=== PATIENT | male | born 1995 | race Hispanic/Latino ===

== ENCOUNTER → 2016-05-17 | Outpatient (CLI) | payer OTHER ==
--- NOTE | 2016-05-17 16:19 | REP ---
CT Head without contrast HISTORY: Forehead mass COMPARISON: None There is no intraparenchymal hemorrhage, acute infarct, mass or midline shift. The ventricular system is normal in appearance. There is no extra cerebral collection. There is no fracture. Minimal mucosal thickening is present in the left maxillary sinus. 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 There is thickening of the overlying subcutaneous tissue. There is minimal soft tissue thickening overlying the left parietal bone at the vertex. IMPRESSION: 1. There is no intracranial lesion. 2. 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 Signed by Guillermo Patricio MD 05/17/2016 04:11 P
== END ==
LOC: M RAD 15:53
PROVIDERS: ATTEND Surgery
DX: D16.9 Benign neoplasm of bone and articular cartilage, unspecified (principal)

== ENCOUNTER 2016-06-21 07:58 | Emergency (ER) | payer OTHER ==
[~2016-06-21] VITALS: Ht 180.3 cm; Wt 10.4 kg
[2016-06-21] MEDS ORDERED: KETOROLAC 30 MG/ML VIAL (J1885) IV ONE (09:30)
[2016-06-21] MEDS ORDERED: ONDANSETRON 4MG/2ML VIAL (J2405) IV ONE (09:30)
[2016-06-21] MEDS ORDERED: NS 1,000 ML IV ONE (09:30)
[2016-06-21 10:14] LABS: BASO % 0.3 % (0.0-1.0); EOS # 0.1 K/mm3 (0.0-0.50); EOS % 0.6 % (0.0-3.0); LARGE UNSTAINED CELL # 0.1 K/mm3 (0.0-0.4); LARGE UNSTAINED CELL % 1.5 % (0.0-4.0); LYMPH # 1.2 K/mm3 (1.5-6.5); LYMPH % 13.1 % (24.0-44.0); MEAN CORPUSCULAR HEMOGLOBIN 30.9 pg (27.0-33.0); MEAN CORPUSCULAR HGB CONC 34.4 g/dl (32.0-36.5); MEAN CORPUSCULAR VOLUME 89.7 fl (80.0-96.0); MONO # 0.8 K/mm3 (0.0-0.8); MONO % 8.3 % (0.0-5.0); NEUTROPHILS # 7.1 K/mm3 (1.8-7.7); NEUTROPHILS % 76.2 % (36.0-66.0); PLATELET COUNT, AUTOMATED 211 k/mm3 (150-450); RED CELL DISTRIBUTION WIDTH 12.2 % (11.5-14.5); WHITE BLOOD COUNT 9.4 K/mm3 (4.0-10.0)
[2016-06-21 10:24] LABS: ALBUMIN 4.3 GM/DL (3.2-5.2); ALBUMIN/GLOBULIN RATIO 1.13 (1.00-1.93); ALKALINE PHOSPHATASE 102 U/L (45-117); ALT/SGPT 32 U/L (12-78); ANION GAP 10 MEQ/L (8-16); AST/SGOT 24 U/L (15-37); BILIRUBIN,DIRECT 0.2 MG/DL (0.0-0.2); BILIRUBIN,TOTAL 0.8 MG/DL (0.2-1.0); BLOOD UREA NITROGEN 14 MG/DL (7-18); CARBON DIOXIDE LEVEL 27 MEQ/L (21-32); CHLORIDE LEVEL 99 MEQ/L (98-107); CREATININE FOR GFR 1.13 MG/DL (0.70-1.30); GLOMERULAR FILTRATION RATE > 60.0 (>60); GLUCOSE, FASTING 100 MG/DL (70-105); POTASSIUM SERUM 4.3 MEQ/L (3.5-5.1); SODIUM LEVEL 136 MEQ/L (136-145); TOTAL PROTEIN 8.1 GM/DL (6.4-8.2)
[2016-06-21] MEDS ORDERED: GI COCKTAIL 50ML BTL(HYOSCYAMINE/MAALOX/LIDOCAINE VISCOUS)(1:3:1) PO ONE (11:00)
[2016-06-21] MEDS ORDERED: ZOFR4TAB3 PO (11:01)
[2016-06-21 11:50] VITALS: BP 160/89
== END 2016-06-21 12:00 | disposition home or self-care (01) ==
LOC: M ED 09:12
DX: K29.00 Acute gastritis without bleeding (principal); E86.0 Dehydration
CPT/HCPCS: 80048; 80076; 81001; 83605; 83690; 85025; 96361; 96374; 96375; 99282; J1885; J2405

== ENCOUNTER → 2016-08-14 | Outpatient (CLI) | payer OTHER ==
[~2016-08-14] MED LIST: ZOFR4TAB3 PO
--- NOTE | 2016-08-15 10:23 | REP ---
MR BRAIN WITHOUT CONTRAST: HISTORY: Headache. COMPARISON: CT 05/17/2016. There are no areas of abnormal signal intensity in the brain. There is no intraparenchymal hemorrhage, infarct, mass or midline shift. The ventricular system is normal in appearance. There is no extracerebral collection. Minimal mucosal thickening is present in the left ethmoid sinus. A small focal area of soft tissue thickening is present overlying the right frontal bone. IMPRESSION: There is no intracranial lesion. Signed by Guillermo Patricio MD 08/15/2016 10:25 A
== END ==
LOC: M RAD 17:43
PROVIDERS: ATTEND Neurological Surgery
DX: R51 Headache (principal)

== ENCOUNTER → 2016-09-08 | Outpatient (CLI) | payer OTHER ==
[~2016-09-08] MED LIST changes: +CIPR-250 PO; +NORC1TAB4 PO; +TYLE500T78 PO
[2016-09-08 10:33] LABS: BASO % 0.6 % (0.0-1.0); EOS # 0.2 K/mm3 (0.0-0.50); EOS % 3.4 % (0.0-3.0); LARGE UNSTAINED CELL # 0.1 K/mm3 (0.0-0.4); LARGE UNSTAINED CELL % 1.8 % (0.0-4.0); LYMPH # 2.5 K/mm3 (1.5-6.5); LYMPH % 36.3 % (24.0-44.0); MEAN CORPUSCULAR HEMOGLOBIN 30.4 pg (27.0-33.0); MEAN CORPUSCULAR HGB CONC 33.6 g/dl (32.0-36.5); MEAN CORPUSCULAR VOLUME 90.5 fl (80.0-96.0); MONO # 0.4 K/mm3 (0.0-0.8); MONO % 5.9 % (0.0-5.0); NEUTROPHILS # 3.4 K/mm3 (1.8-7.7); NEUTROPHILS % 51.9 % (36.0-66.0); PLATELET COUNT, AUTOMATED 262 k/mm3 (150-450); RED CELL DISTRIBUTION WIDTH 13.4 % (11.5-14.5); WHITE BLOOD COUNT 6.5 K/mm3 (4.0-10.0)
--- NOTE | 2016-09-08 10:34 | REP ---
Chest x-ray: Two views. 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 . Comparison study: No comparison chest x-ray. Comparison chest CT study June 25, 2016 [facility]. This was reported as showing a small hiatal hernia. . Findings: The lungs are well inflated and free of infiltrate. The pleural angles are sharp. The heart size is normal. Pulmonary vasculature is not increased. No significant bony abnormality is seen. Impression: Negative chest x-ray. Signed by Manuel Hawk MD 09/08/2016 10:26 A
[2016-09-08 10:39] LABS: INR 0.92
[2016-09-08 10:46] LABS: ALBUMIN 4.3 GM/DL (3.2-5.2); ALKALINE PHOSPHATASE 99 U/L (45-117); ALT/SGPT 30 U/L (12-78); ANION GAP 5 MEQ/L (8-16); AST/SGOT 21 U/L (15-37); BILIRUBIN,TOTAL 0.5 MG/DL (0.2-1.0); BLOOD UREA NITROGEN 21 MG/DL (7-18); CALCIUM LEVEL 9.6 MG/DL (8.5-10.1); CARBON DIOXIDE LEVEL 32 MEQ/L (21-32); CHLORIDE LEVEL 105 MEQ/L (98-107); CREATININE FOR GFR 1.22 MG/DL (0.70-1.30); GLOMERULAR FILTRATION RATE > 60.0 (>60); GLUCOSE, FASTING 98 MG/DL (70-105); POTASSIUM SERUM 4.5 MEQ/L (3.5-5.1); SODIUM LEVEL 142 MEQ/L (136-145); TOTAL PROTEIN 7.6 GM/DL (6.4-8.2)
--- NOTE | 2016-09-09 08:45 | ECGEPIP ---
Stationary ECG Study [facility] Test Date: 2016-09-08 Pat Name: LUZ ESCALONA Department: Room: - Gender: M Medical Equipment Sales: [facility] : 1995 Requested By: OG Murrieta Order Number: [id number] Reading MD: Guy Palencia Measurements Intervals [place] Rate: 58 P: 44 LA: 181 QRS: 67 QRSD: 106 T: 17 QT: 392 QTc: 385 Interpretive Statements Sinus bradycardia with sinus arrhythmia Normal EKG Comparison tracing not available Electronically Signed On 09-09-2016 8:45:27 EDT by Guy Palencia
== END ==
LOC: M LAB 09:28
PROVIDERS: ATTEND Neurological Surgery
DX: D16.4 Benign neoplasm of bones of skull and face (principal)

== ENCOUNTER 2016-09-12 05:52 | Day surgery (SDC) | payer OTHER ==
[~2016-09-12] VITALS: Ht 180.3 cm; Wt 108.9 kg
[~2016-09-12 05:52] MED LIST changes: -CIPR-250 PO; -NORC1TAB4 PO
[2016-09-12] MEDS ORDERED: LR 1,000 ML IV SCH ×2 (06:15→10:00)
[2016-09-12] MEDS ORDERED: ceFAZolin 2 GM/D5W 50 ML IV BAG (J0690) As Ordered ONE (06:41)
[2016-09-12] MEDS ORDERED: THROMBIN SOLN 20,000 UNITS KIT As Ordered ONE (07:23)
[2016-09-12] MEDS ORDERED: LIDOCAINE W/EPINEPHRINE 1% 20ML VIAL As Ordered ONE (07:23)
[2016-09-12] MEDS ORDERED: PROPOFOL 200 MG/20 ML VIAL As Ordered ONE (07:59)
[2016-09-12] MEDS ORDERED: MIDAZOLAM INJ 2 MG/2 ML VIAL (J2250) As Ordered ONE (07:59)
[2016-09-12] MEDS ORDERED: fentaNYL 250 MCG/5 ML INJECTION (J3010) As Ordered ONE (07:59)
[2016-09-12] MEDS ORDERED: LIDOCAINE 2% INJ 100 MG/5 ML SDV (FOR ANES.) As Ordered ONE (07:59)
[2016-09-12] MEDS ORDERED: dexameTHASONE 4 MG/ML 1ML VIAL (J1100) As Ordered ONE (07:59)
[2016-09-12] MEDS ORDERED: ROCURONIUM BROMIDE 50 MG/5 ML VIAL As Ordered ONE ×2 (07:59→08:25)
[2016-09-12] MEDS ORDERED: GLYCOPYRROLATE INJ 0.2 MG/ML 2 ML VIAL As Ordered ONE (08:36)
[2016-09-12] MEDS ORDERED: NEOSTIGMINE 1MG/ML 5 ML SYRINGE (J2710) As Ordered ONE (08:36)
[2016-09-12] MEDS ORDERED: ONDANSETRON 4MG/2ML VIAL (J2405) As Ordered ONE (08:36)
[2016-09-12] MEDS ORDERED: BACITRACIN PWD 50,000 UNITS VIAL As Ordered ONE (09:16)
[2016-09-12] MEDS ORDERED: KETOROLAC 60 MG/2 ML VIAL (J1885) As Ordered ONE (09:18)
[2016-09-12] MEDS ORDERED: fentaNYL 100 MCG/2 ML INJECTION (J3010) IV PRN (10:00)
[2016-09-12] MEDS ORDERED: ONDANSETRON 4MG/2ML VIAL (J2405) IV PRN (10:00)
[2016-09-12] MEDS ORDERED: NORCO, ANEXSIA 5/325MG TABLET (HYDROcodone/ACETAMINOPHEN) PO PRN (10:00)
[2016-09-12 10:35] VITALS: BP 138/78
[2016-09-12 11:15] VITALS: BP 141/77
[2016-09-12 12:15] VITALS: BP 140/75
[2016-09-12] MEDS: NORCO, ANEXSIA 5/325MG TABLET (HYDROcodone/ACETAMINOPHEN) PO PRN ×2 (12:21→16:16)
[2016-09-12 13:15] VITALS: BP 137/72
[2016-09-12 14:15] VITALS: BP 135/75
[2016-09-12] MEDS ORDERED: CIPR-250 PO (15:06)
[2016-09-12] MEDS ORDERED: NORC1TAB4 PO (15:06)
[2016-09-15] MEDS ORDERED: KEFL500C7 PO (17:34)
== END 2016-09-12 16:40 | disposition home or self-care (01) ==
LOC: M MS5PR 05:52 → M SDC 05:52 → M OR 05:52 → UNDOADMIN 05:52 → EDSTATUS 07:30 → M MS5PR 10:30 → M OR 10:30 → M SDC 16:40 → UNDODISIN 16:40
PROVIDERS: ATTEND Neurological Surgery
DX: D16.4 Benign neoplasm of bones of skull and face (principal); R51 Headache; D48.5 Neoplasm of uncertain behavior of skin; Z86.011 Personal history of benign neoplasm of the brain
CPT/HCPCS: 21026; 88304; 88305; 88311; J0690; J1100; J1885; J2250; J2405; J2710; J3010

== ENCOUNTER 2016-09-15 15:30 | Emergency (ER) | payer OTHER ==
[~2016-09-15] VITALS: Ht 180.3 cm; Wt 111.3 kg
[~2016-09-15 15:30] MED LIST changes: +CIPR-250 PO; +NORC1TAB4 PO
[2016-09-15 16:29] LABS: BASO # 0.1 K/mm3 (0.0-0.2); EOS # 0.2 K/mm3 (0.0-0.50); EOS % 2.5 % (0.0-3.0); LARGE UNSTAINED CELL # 0.1 K/mm3 (0.0-0.4); LARGE UNSTAINED CELL % 1.5 % (0.0-4.0); LYMPH # 2.5 K/mm3 (1.5-6.5); LYMPH % 30.6 % (24.0-44.0); MEAN CORPUSCULAR HEMOGLOBIN 31.9 pg (27.0-33.0); MEAN CORPUSCULAR HGB CONC 35.6 g/dl (32.0-36.5); MEAN CORPUSCULAR VOLUME 89.8 fl (80.0-96.0); MONO # 0.5 K/mm3 (0.0-0.8); MONO % 6.1 % (0.0-5.0); NEUTROPHILS # 4.5 K/mm3 (1.8-7.7); NEUTROPHILS % 58.2 % (36.0-66.0); PLATELET COUNT, AUTOMATED 253 k/mm3 (150-450); RED CELL DISTRIBUTION WIDTH 12.9 % (11.5-14.5); WHITE BLOOD COUNT 7.8 K/mm3 (4.0-10.0)
[2016-09-15 16:54] LABS: ALBUMIN 4.4 GM/DL (3.2-5.2); ALKALINE PHOSPHATASE 94 U/L (45-117); ALT/SGPT 29 U/L (12-78); ANION GAP 6 MEQ/L (8-16); AST/SGOT 17 U/L (15-37); BILIRUBIN,TOTAL 0.5 MG/DL (0.2-1.0); BLOOD UREA NITROGEN 16 MG/DL (7-18); CALCIUM LEVEL 9.7 MG/DL (8.5-10.1); CARBON DIOXIDE LEVEL 33 MEQ/L (21-32); CHLORIDE LEVEL 100 MEQ/L (98-107); CREATININE FOR GFR 1.04 MG/DL (0.70-1.30); GLOMERULAR FILTRATION RATE > 60.0 (>60); GLUCOSE, FASTING 93 MG/DL (70-105); POTASSIUM SERUM 4.5 MEQ/L (3.5-5.1); SODIUM LEVEL 139 MEQ/L (136-145); TOTAL PROTEIN 8.4 GM/DL (6.4-8.2)
[2016-09-15] MEDS ORDERED: ISOVUE-370 76% 100ML VIAL (Q9967) As Ordered ONE (16:56)
--- NOTE | 2016-09-15 17:30 | REPUSA ---
CT of the facial bones clinical history: postoperative osteoma removal. Technique: Multiple axial CT images were obtained through the facial bones and paranasal sinuses util izing 3 mm axial slices after administration of nonionic intravenous of contrast. Coronal and sagitta l reconstructions were also obtained. The visualized paranasal sinuses are clear. The osteomeatal complexes are patent bilaterally. The marivel al septum is midline. The visualized mastoid air cells are clear. The osseous structures do not demon strate any acute abnormalities. There is focal superficial soft tissue swelling in the right frontal region, which appears to be postoperative. This appears to be subcutaneous in nature. Mild surroundin g edema is noted. Impression: 1. Focal area of superficial soft tissue swelling and edema in the right frontal region which appears to be postoperative, likely hematoma. Follow-up is suggested as clinically indicated. 2. The osseous structures are grossly unremarkable.
[2016-09-15] MEDS ORDERED: IBUP80TA PO (17:34)
[2016-09-15] MEDS ORDERED: KEFL500C17 PO (17:34)
[2016-09-15] MEDS ORDERED: CEPHALEXIN 500 MG CAP PO ONE (17:45)
[2016-09-15 17:46] VITALS: BP 141/85
== END 2016-09-15 17:49 | disposition home or self-care (01) ==
LOC: M ED 15:41
DX: T81.4XXA Infection following a procedure, initial encounter (principal); R60.9 Edema, unspecified; Y83.8 Other surgical procedures as the cause of abnormal reaction of the patient, or of later complication, without mention of misadventure at the time of the procedure; Z79.2 Long term (current) use of antibiotics
CPT/HCPCS: 36415; 70487; 80053; 85025; 99283; Q9967

== ENCOUNTER → 2016-10-19 | Outpatient (CLI) | payer OTHER ==
[~2016-10-19] MED LIST changes: +IBUP80TA PO; +KEFL500C17 PO
--- NOTE | 2016-10-19 10:34 | REP ---
REASON FOR EXAM: Headache. COMPARISON EXAM: 05/17/2016. TECHNIQUE: 4.5 mm contiguous transaxial sections were obtained from the skull base to the cerebral convexities with thin cuts through the posterior fossa without the administration of intravenous contrast. FINDINGS: The ventricles and sulci are consistent with the patient's age. There are no extra-axial fluid collections. There is no mass effect. The deep cerebral white matter is consistent with the patient's age. The orbital and petrous structures , cerebellopontine angles, and posterior fossa are unremarkable. The sella turcica, cavernous, and paracavernous structures are essentially unremarkable. The visualized portions of the paranasal sinuses and mastoid air cells are clear. Images of the skull base show no gross abnormality. IMPRESSION: Essentially unremarkable CT examination of the brain. There has been no significant change from the prior exam. Signed by Anam Townsend DO 10/19/2016 10:51 A
== END ==
LOC: M RAD 07:45
PROVIDERS: ATTEND Neurological Surgery
DX: M54.81 Occipital neuralgia (principal); D16.4 Benign neoplasm of bones of skull and face

== ENCOUNTER 2017-02-27 10:49 | Day surgery (SDC) | payer OTHER ==
[~2017-02-27] VITALS: Ht 180.3 cm; Wt 111.1 kg
[~2017-02-27 10:49] MED LIST changes: +OMEP20CA3 PO; +TOPI25TA10 PO
[2017-02-27] MEDS ORDERED: NS 1,000 ML IV ONE (11:00)
[2017-02-27] MEDS ORDERED: PROPOFOL 500 MG/50 ML VIAL As Ordered ONE (12:14)
[2017-02-27] MEDS ORDERED: LIDOCAINE 2% INJ 100 MG/5 ML SDV (FOR ANES.) As Ordered ONE (12:36)
[2017-02-27] MEDS ORDERED: fentaNYL 100 MCG/2 ML INJECTION (J3010) As Ordered ONE (13:03)
--- NOTE | 2017-02-27 13:18 | ROOR ---
Patient Name: Ethan Lopez Procedure Date: 02/27/2017 12:58 PM Date of : 1995 Age: 21 Room: [facility] Gender: Male Note Status: Finalized Procedure: Upper Endoscopy + Biopsies Indications: Heartburn, Exclusion of Rader's esophagus Providers: Roberto Cespedes MD Referring MD: ABDIEL EMERSON MD Requesting Provider: Medicines: Monitored Anesthesia Care Complications: No immediate complications. Procedure: Pre-Anesthesia Assessment: - The heart rate, respiratory rate, oxygen saturations, blood pressure, adequacy of pulmonary ventilation, and response to care were monitored throughout the procedure. The Endoscope was introduced through the mouth, and advanced to the second part of duodenum. The upper GI endoscopy was accomplished without difficulty. The patient tolerated the procedure well. Findings: The Z-line was irregular and was found 40 cm from the incisors. Multiple biopsies were obtained with cold forceps for evaluation to rule out Rader's Esophagus randomly at the gastroesophageal junction. Non-severe esophagitis with no bleeding was found 40 cm from the incisors. A small hiatal hernia was present. No other significant abnormalities were identified in a careful examination of the stomach. The exam of the duodenum was otherwise normal. Impression: - Z-line irregular, 40 cm from the incisors. - Non-severe reflux esophagitis. Rule out Rader's esophagus. - Small hiatal hernia. - Multiple biopsies were obtained at the gastroesophageal junction. - The examination was otherwise normal. Recommendation: - Patient has a contact number available for emergencies. The signs and symptoms of potential delayed complications were discussed with the patient. Return to normal activities tomorrow. Written discharge instructions were provided to the patient. - High fiber diet. - Discharge patient to home. - Follow an antireflux regimen. - Continue present medications. - Await pathology results. - Telephone GI clinic for pathology results in 1 week. Roberto Cespedes MD Roberto Cespedes MD 02/27/2017 1:18:29 PM This report has been signed electronically. Number of Addenda: 0 Note Initiated On: 02/27/2017 12:58 PM Estimated Blood Loss: Estimated blood loss: none.
--- NOTE | 2017-02-27 13:36 | ROOR ---
Patient Name: Ethan Lopez Procedure Date: 02/27/2017 12:59 PM Date of : 1995 Age: 21 Room: [facility] Gender: Male Note Status: Finalized Procedure: Total Colonoscopy to Cecum + Bx. To r/o Microscopic Colitis + ileoscopy. Indications: Clinically significant diarrhea of unexplained origin Providers: Roberto Cespedes MD Referring MD: ABDIEL EMERSON MD Requesting Provider: Medicines: Monitored Anesthesia Care Complications: No immediate complications. Procedure: Pre-Anesthesia Assessment: - The heart rate, respiratory rate, oxygen saturations, blood pressure, adequacy of pulmonary ventilation, and response to care were monitored throughout the procedure. The Colonoscope was introduced through the anus and advanced to the cecum, identified by appendiceal orifice and ileocecal valve. The colonoscopy was performed without difficulty. The patient tolerated the procedure well. The quality of the bowel preparation was good. Findings: The perianal and digital rectal examinations were normal. Non-bleeding internal hemorrhoids were found during retroflexion. The hemorrhoids were small and Grade I (internal hemorrhoids that do not prolapse). No other significant abnormalities were identified in a careful examination of the remainder of the colon. The exam was otherwise without abnormality on direct and retroflexion views. Biopsies for histology were taken with a cold forceps from the ascending colon, transverse colon and descending colon for evaluation of microscopic colitis. A localized area of the distal ileum was congested. The exam was otherwise without abnormality. Impression: - Non-bleeding internal hemorrhoids. - The examination was otherwise normal on direct and retroflexion views. - Congested mucosa in the distal ileum. - The examination was otherwise normal. - Biopsies were taken with a cold forceps from the ascending colon, transverse colon and descending colon for evaluation of microscopic colitis. - The exam was otherwise normal to the cecum. Recommendation: - Patient has a contact number available for emergencies. The signs and symptoms of potential delayed complications were discussed with the patient. Return to normal activities tomorrow. Written discharge instructions were provided to the patient. - Discharge patient to home. - Continue present medications. - Await pathology results. - Telephone GI clinic for pathology results in 1 week. - Repeat colonoscopy at age 48 for screening purposes. - Check Portal Online for Path [email or web address] - High fiber diet. - The findings and recommendations were discussed with the patient's family. Roberto Cespedes MD Roberto Cespedes MD 02/27/2017 1:35:30 PM This report has been signed electronically. Number of Addenda: 0 Note Initiated On: 02/27/2017 12:59 PM Estimated Blood Loss: Estimated blood loss: none.
[2017-02-27 14:06] VITALS: BP 156/75
== END 2017-02-27 14:18 | disposition home or self-care (01) ==
LOC: M OPP 10:49
PROVIDERS: ATTEND Internal Medicine Gastroenterology
DX: R19.7 Diarrhea, unspecified (principal); K58.0 Irritable bowel syndrome with diarrhea; R19.4 Change in bowel habit; K63.89 Other specified diseases of intestine; K64.0 First degree hemorrhoids; R12 Heartburn; K22.8 Other specified diseases of esophagus; K21.0 Gastro-esophageal reflux disease with esophagitis; K44.9 Diaphragmatic hernia without obstruction or gangrene; Z87.891 Personal history of nicotine dependence; Z79.899 Other long term (current) drug therapy
CPT/HCPCS: 43239; 45380; 88305; J3010